=== PATIENT | female | born 1945 | race Caucasian/White ===

== ENCOUNTER → 2017-06-13 09:12 | Outpatient (CLI) | payer MEDICARE, SELFPAY ==
[2017-05-02 00:22] VITALS: BP 156/84; BMI 34.5
[2017-06-13 10:07] LABS: AST(SGOT) 46 U/L (15-37); Alanine Aminotransfer ALT/SGPT 40 U/L (13-56); Alkaline Phosphatase 62 U/L (45-117); Anion Gap 10 (5-15); BUN 26 mg/dL (7-18); BUN/Creat Ratio 18.1 RATIO (10-20); Calcium,Total 9.2 mg/dL (8.5-10.1); Chloride 108 mmol/L (98-107); Cholesterol 184 mg/dL (200); Creatinine, Serum 1.44 mg/dL (0.55-1.02); EST Glomerular Filtration Rate 38 mL/min (>60); Est Glom Filt Rate - Afr Amer 46 mL/min (>60); Globulin 3.9 g/dL (2.2-4.2); Glucose 109 mg/dL (74-106); High Density Lipoprotein 44 mg/dL; Potassium 3.9 mmol/L (3.5-5.1); Protein, Total 7.9 g/dL (6.4-8.2); Sodium Level 141 mmol/L (136-145); Triglycerides 164 mg/dL; Very Low Density Lipoprotein 33 mg/dL (5-40)
== END ==
PROVIDERS: PCP Internal Medicine Geriatric Medicine
DX: E78.5 Hyperlipidemia, unspecified (principal)
CPT/HCPCS: 36415; 80053; 80061

== ENCOUNTER 2017-07-02 12:19 | Emergency (ER) | payer MEDICARE, SELFPAY ==
[2017-07-02 12:20] VITALS: BP 172/79; PULSE 72; RESP 16; TEMP 37.2; O2SAT 97; BMI 34.7
--- NOTE | 2017-07-02 13:05 | RAD_ITS ---
STUDY: X-RAY CHEST REASON FOR EXAM: Female, 72 years old. Cough and flulike symptoms for several days TECHNIQUE: 2 views of the chest were obtained COMPARISON: None. FINDINGS: Small right-sided pleural effusion with right lower lobe developing which limits. Bilateral pulmonary vascular congestion. Surgical clips overlying the mediastinum. Cardiac size is slightly prominent. RAD/Chest PA and Lateral IMPRESSION: Small right-sided pleural effusion suspected with bilateral pulmonary vascular congestion. Subtle developing infiltrates in the right lower lobe are suspected. Electronically Signed: Link Arce, at 14:09 EST Tel , Service support ,
--- NOTE | 2017-07-02 13:09 | ED.DCSUM_ITS ---
- ER Visit Summary Date of Service: 07/02/17 Chief Complaint: Cough and congestion History of Present Illness: The patient is a 72 F with history of diabetes who presents with 2 days of cough, congestion and cold-like symptoms. Patient states she has been having a productive cough, sinus congestion, headache, achiness in her legs, vomiting, and ear congestion that started 2 days ago. She called her doctor yesterday who prescribed her amoxicillin. She was unable to tolerate it due to vomiting after taking it. She did get a flu shot. She thought she had a fever at home due to feeling warm. Physical Examination: Vital signs: afebrile, hemodynamically stable, no hypoxia on room air General: well nourished, well developed, in no distress Skin: warm, dry, no rash, no pallor HEENT: normocephalic and atraumatic; PERRL, EOMI, moist mucous membranes, nasal voice with obvious sinus congestion Cardiovascular: regular rate and rhythm without murmurs, no peripheral edema, 2 + pulses all distal extremities Respiratory: No increased work of breathing, lungs are clear to auscultation bilaterally, no rales, rhonchi or wheezing Abdominal: Abdomen is soft, nontender with normoactive bowel sounds, no guarding or rebound, no masses MSK: Moves all extremities, no deformities, normal strength Neuro: Awake and alert, oriented ?4. No facial droop, sensation and motor function intact and symmetric Test Results: Flu negative Emergency Department Course and Treatment: Patient was given Zofran for her nausea and had improvement. Flu was checked given her complaints and less than hour onset. It was negative. Chest x-ray showed a right lower lobe infiltrate. Patient will discontinue the amoxicillin and was prescribed azithromycin. She is to follow-up with her doctor early next week for reevaluation. She agreed with this plan was discharged home. He will continue to use [id number] medications as needed for symptomatic relief. Treatment Plan: [] Disposition: [] Impression: viral syndrome with secondary PNA This note was generated with [employer] dictation software. It may contain incorrect words, spelling, and punctuation that were not noted in review of the chart prior to signing ED Disposition - Plan for ED Patient: Disposition: Home or Assisted Living Chief Complaint: General Illness Instructions: ED Pneumonia Adult Prescriptions: Ondansetron [Zofran Odt] 4 mg PO Q8H PRN PRN #10 tab PRN Reason: Nausea Azithromycin [Zithromax Z-Davey] 250 mg PO UD #1 box Referrals: Shania Majano [Primary Care Provider] - 3-5 Days Additional Instructions: Your symptoms you are having today are most consistent with a viral syndrome. However your chest x-ray showed findings concerning for pneumonia. Please take your antibiotic daily as prescribed. You may use the Zofran to help you with nausea. Please follow-up with your doctor within 3-5 days for another evaluation and to make sure that you are improving. May continue to use over- the-counter medications as needed for symptom relief, such as Tylenol for headaches and body aches. Please return to the emergency department immediately if you have any worsening of your condition or any new, concerning symptoms.
[2017-07-02] MEDS: Ondansetron ODT 4 MG Tablet PO (13:12)
--- NOTE | 2017-07-02 14:52 | DCINST.ED_ITS ---
ED Disposition - Plan for ED Patient: Chief Complaint: General Illness Instructions: ED Pneumonia Adult Prescriptions: Ondansetron [Zofran Odt] 4 mg PO Q8H PRN PRN #10 tab PRN Reason: Nausea Azithromycin [Zithromax Z-Davey] 250 mg PO UD #1 box Referrals: Shania Majano [Primary Care Provider] - 3-5 Days Additional Instructions: Your symptoms you are having today are most consistent with a viral syndrome. However your chest x-ray showed findings concerning for pneumonia. Please take your antibiotic daily as prescribed. You may use the Zofran to help you with nausea. Please follow-up with your doctor within 3-5 days for another evaluation and to make sure that you are improving. May continue to use over- the-counter medications as needed for symptom relief, such as Tylenol for headaches and body aches. Please return to the emergency department immediately if you have any worsening of your condition or any new, concerning symptoms.
[2017-07-02 15:03] VITALS: BP 132/74; PULSE 71; RESP 16; O2SAT 98
== END 2017-07-02 15:04 | disposition home or self-care (01) ==
PROVIDERS: Emergency Provider Emergency Medicine; PCP Internal Medicine Geriatric Medicine
DX: J18.9 Pneumonia, unspecified organism (principal); B34.9 Viral infection, unspecified; Z79.2 Long term (current) use of antibiotics; Z79.82 Long term (current) use of aspirin; Z79.899 Other long term (current) drug therapy
CPT/HCPCS: 71046; 87804; 99283

== ENCOUNTER → 2017-07-11 10:34 | Outpatient (CLI) | payer MEDICARE, SELFPAY ==
--- NOTE | 2017-07-11 10:38 | US_ITS ---
STUDY: ABDOMINAL ULTRASOUND - RIGHT UPPER QUADRANT REASON FOR VISIT: Female, 72 years old. Nausea and vomiting TECHNIQUE: Ultrasound evaluation of the right upper quadrant was performed with real-time and static veras-scale imaging. TECHNICAL QUALITY: Adequate. COMPARISON: None. FINDINGS: Liver: The liver measures 15.5 cm. There is increased echogenicity consistent with fatty infiltration. There is 1.6 x 1.3 cm hyperechoic focus of the right hepatic lobe consistent with hemangioma. The bile ducts are within normal limits. There is hepatic color flow. The direction of portal flow is hepatopetal. Gallbladder: Normal distended gallbladder. The gallbladder wall measures 4 mm. There is a negative sonographic Woodall's sign. There is no pericholecystic fluid. Several small gallstones are present. Common Bile Duct (C.B.D.): The common bile duct measures 4 mm. Pancreas: Normal size of the head, body and tail of the pancreas. There is normal echogenicity of the pancreas. There is no demonstrated pancreatic mass or cyst. Right Kidney: Normal size of the right kidney. The right kidney measures 10.9 x 4.5 x 4.3 cm. Normal renal cortex. The right cortex measures 1.2 cm. There is a 1.8 x 2.0 cm cyst of the mid to inferior pole of the right kidney. There is no right hydronephrosis. US/Abdomen Limited IMPRESSION: 1. 1.6 x 1.3 cm hyperechoic focus of the right hepatic lobe consistent with hemangioma. CT of the abdomen with and without contrast would be helpful for further evaluation of this finding. 2. Hepatic steatosis. 3. Cholelithiasis. There is mild diffuse gallbladder wall thickening measuring up to 4 mm. 4. There is a 1.8 x 2.0 cm cyst of the mid to inferior pole of the right kidney. Electronically Signed: Melchor Mcclendon MD at 0:03 EDT , Service support ,
== END ==
PROVIDERS: Family Provider Internal Medicine Geriatric Medicine; PCP Internal Medicine Geriatric Medicine
DX: R11.2 Nausea with vomiting, unspecified (principal)
CPT/HCPCS: 76705

== ENCOUNTER → 2017-09-02 13:52 | Outpatient (CLI) | payer MEDICARE, SELFPAY ==
[2017-09-02 15:55] LABS: Anion Gap 9 (5-15); BUN 24 mg/dL (7-18); Calcium,Total 9.8 mg/dL (8.5-10.1); Chloride 105 mmol/L (98-107); Creatinine, Serum 1.33 mg/dL (0.55-1.02); EST Glomerular Filtration Rate 41 mL/min (>60); Est Glom Filt Rate - Afr Amer 50 mL/min (>60); Glucose 87 mg/dL (74-106); Sodium Level 141 mmol/L (136-145)
== END ==
PROVIDERS: Family Provider Internal Medicine Geriatric Medicine; PCP Internal Medicine Geriatric Medicine; Visit Provider Internal Medicine Geriatric Medicine
DX: I12.9 Hypertensive chronic kidney disease with stage 1 through stage 4 chronic kidney disease, or unspecified chronic kidney disease (principal); N18.3 Chronic kidney disease, stage 3 (moderate); R63.5 Abnormal weight gain
CPT/HCPCS: 36415; 80048

== ENCOUNTER → 2018-02-25 10:30 | Outpatient (CLI) | payer MEDICARE, SELFPAY ==
[2018-02-25 12:13] LABS: Anion Gap 9 (5-15); BUN 20 mg/dL (7-18); BUN/Creat Ratio 13.2 RATIO (10-20); Calcium,Total 8.9 mg/dL (8.5-10.1); Chloride 105 mmol/L (98-107); Creatinine, Serum 1.52 mg/dL (0.55-1.02); EST Glomerular Filtration Rate 36 mL/min (>60); Est Glom Filt Rate - Afr Amer 43 mL/min (>60); Glucose 87 mg/dL (74-106); Potassium 3.5 mmol/L (3.5-5.1); Sodium Level 139 mmol/L (136-145)
== END ==
PROVIDERS: Family Provider Internal Medicine Geriatric Medicine; PCP Internal Medicine Geriatric Medicine; Referring Provider Internal Medicine Geriatric Medicine; Visit Provider Internal Medicine Geriatric Medicine
DX: I12.9 Hypertensive chronic kidney disease with stage 1 through stage 4 chronic kidney disease, or unspecified chronic kidney disease (principal); N18.3 Chronic kidney disease, stage 3 (moderate)
CPT/HCPCS: 36415; 80048

== ENCOUNTER → 2018-05-26 15:35 | Outpatient (CLI) | payer MEDICARE, SELFPAY ==
[2018-05-26 16:26] LABS: Hematocrit 33.5 % (37-47); Hemoglobin 10.8 g/dl (12.0-15.0); Mean Corp Hgb Conc 32.2 g/gl (32-36); Mean Corpuscular Hgb 29.8 pg (27.0-32.0); Mean Corpuscular Volume 92.3 fL (81-99); Mean Platelet Vol. 10.2 fl (6.2-12.0); Platelet Count 313 K/mm3 (150-450); RBC Distribution Width CV 14.2 % (11.6-14.6); RBC Distribution Width SD 46.2 fl (35.1-43.9); Red Blood Count 3.63 M/mm3 (4.2-5.4); White Blood Count 8.1 K/mm3 (4.4-11.0)
[2018-05-26 16:31] LABS: Scan Indicated on CBC? Y/N NO
[2018-05-26 16:53] LABS: ALB/GLOB Ratio 0.8 RATIO (0.9-2.4); AST(SGOT) 29 U/L (15-37); Alanine Aminotransfer ALT/SGPT 26 U/L (13-56); Albumin, Serum 3.4 g/dL (3.2-5.0); Alkaline Phosphatase 64 U/L (45-117); Anion Gap 12 (5-15); BUN 23 mg/dL (7-18); BUN/Creat Ratio 13.6 RATIO (10-20); Calcium,Total 8.7 mg/dL (8.5-10.1); Chloride 109 mmol/L (98-107); Creatinine, Serum 1.69 mg/dL (0.55-1.02); EST Glomerular Filtration Rate 31 mL/min (>60); Est Glom Filt Rate - Afr Amer 38 mL/min (>60); Globulin 4.2 g/dL (2.2-4.2); Glucose 95 mg/dL (74-106); Potassium 3.8 mmol/L (3.5-5.1); Protein, Total 7.6 g/dL (6.4-8.2); Sodium Level 141 mmol/L (136-145)
== END ==
PROVIDERS: Family Provider Internal Medicine Geriatric Medicine; PCP Internal Medicine Geriatric Medicine; Referring Provider Internal Medicine Geriatric Medicine; Visit Provider Internal Medicine Geriatric Medicine
DX: I10 Essential (primary) hypertension (principal); M10.9 Gout, unspecified
CPT/HCPCS: 36415; 80053; 85027

== ENCOUNTER 2018-05-27 18:18 | Emergency (ER) | payer MEDICARE, SELFPAY ==
[2018-05-27 18:19] VITALS: BP 155/111; PULSE 75; RESP 29; O2SAT 99
[2018-05-27 18:20] VITALS: BP 115/111; PULSE 78; RESP 26; TEMP 37.2; O2SAT 99; BMI 36.5
--- NOTE | 2018-05-27 18:33 | EKG12_ITS ---
Test Reason : GI BLEED Blood Pressure : / mmHG Vent. Rate : 069 BPM Atrial Rate : 069 BPM P-R Int : 162 ms QRS Dur : 076 ms QT Int : 412 ms P-R-T Axes : 047 002 055 degrees QTc Int : 441 ms Normal sinus rhythm Normal ECG Confirmed by SOHAIL ELIZONDO, UMU ([id number]), movie editor BUBBA WELSH ([id number]) on 05/30/2018 2:10:24 PM Referred By: Shania Barney Confirmed By:UMU SAUCEDA MD
[2018-05-27 18:43] LABS: Absolute Lymphocyte Count 1.98 X10^3/ul (0.83-4.51); Absolute Neutrophil Count 4.4 X10^3/uL (2.0-7.7); Basophil# 0.05 X10^3/uL; Basophil% 0.7 % (0-1); Eosinophil# 0.61 X10^3/uL; Eosinophils% 8.1 % (0-5); Hemoglobin 10.3 g/dl (12.0-15.0); Lymphocyte # 1.98 X10^3/ul (4.0); Lymphocyte % 26.2 % (19-41); Mean Corp Hgb Conc 32.2 g/gl (32-36); Mean Corpuscular Hgb 29.2 pg (27.0-32.0); Mean Corpuscular Volume 90.7 fL (81-99); Mean Platelet Vol. 9.7 fl (6.2-12.0); Monocyte# 0.49 X10^3/uL; Monocyte% 6.5 % (0-10); Neutrophil # 4.38 X10^3/uL (2.7-7.7); POSITIVE COUNT NO; POSITIVE DIFFERENTIAL NO; POSITIVE MORPHOLOGY NO; Platelet Count 304 K/mm3 (150-450); RBC Distribution Width CV 14.6 % (11.6-14.6); RBC Distribution Width SD 47.6 fl (35.1-43.9); Red Blood Count 3.53 M/mm3 (4.2-5.4); White Blood Count 7.6 K/mm3 (4.4-11.0)
[2018-05-27 18:46] LABS: Prothrombin Time (Protime)PT. 13.6 SECONDS (11.7-14.9)
--- NOTE | 2018-05-27 18:46 | CT_ITS ---
STUDY: CT ABDOMEN AND PELVIS WITHOUT CONTRAST REASON FOR EXAM: Female, 72 years old. Rectal bleeding since , dizziness, shortness of breath RADIATION DOSAGE (If Supplied By Facility): CTDIvol = ( 18.92 ) mGy, DLP = ( 935.66 ) mGycm TECHNIQUE: Transaxial images were obtained from the dome of the diaphragm to the symphysis pubis without oral contrast, and without intravenous contrast. Sagittal and coronal images were reconstructed. Individualized dose optimization techniques were used for this CT. COMPARISON: None. FINDINGS: There are chronic interstitial fibrotic changes of the lung bases. The visualized portions of the heart are within normal limits. Normal liver. There are 2 gallstones. Normal spleen. Normal pancreas. Normal bilateral adrenal glands. Normal right kidney. Normal left kidney. There is a small hiatal hernia. Normal small intestine. There are multiple colonic diverticula consistent with diverticulosis. No pericolonic stranding identified. Prominent wall thickness of the sigmoid colon likely relates muscular hyperplasia given lack of adjacent stranding/inflammation. There is non-visualization of the appendix. There is diffuse atherosclerotic calcification of the abdominal aorta, without a demonstrated aneurysm. Normal inferior vena cava. Normal retroperitoneum. There is mild diffuse induration of the mesenteric root with small lymph nodes but no dominant rom mass. Normal urinary bladder. There is absence of the uterus consistent with a prior hysterectomy. Normal abdominal wall. There are diffuse degenerative changes of the visualized lumbar spine. CT/Abdomen/Pelvis without Cont IMPRESSION: 1. Diverticulosis without evidence of diverticulitis. No definite colon wall thickening. 2. Lavonne mesentery with reactive-appearing lymph nodes. No dominant rom mass. Broad differential diagnosis without distinguishing features on current exam. Most typically represent sequela of prior/old event of inflammation (including enteritis, diverticulitis) or mesenteritis. Likely a chronic finding but no comparison studies are available. Electronically Signed: Julio Campo MD at 20:06 EST , Service support ,
--- NOTE | 2018-05-27 18:48 | ED.DCSUM_ITS ---
- ER Visit Summary Date of Service: 05/27/18 Chief Complaint: [] Rectal bleeding intermittently for weeks History of Present Illness: The patient is a 72 F [] she has noted intermittent blood per rectum for weeks she really cannot quantify or describe it, she has been evaluated for this in the past by her physicians colonoscopy recommended she is refused, she indicates over the last few days she has had more blood per rectum but she reports for the last 24 hours she is actually had less blood per rectum today no vomiting intermittent crampy pain to the left lower quadrant normal UA output takes an aspirin a day no blood thinners Physical Examination: [] 115/100 General, no distress resting comfortably HEENT is generally unremarkable The neck is supple no adenopathy Cardiovascular, regular rate and rhythm Lungs, clear bilateral Abdomen, soft nontender the rectal exam shows hemorrhoids brown stool in the rectal vault no pain no bleeding no blood Extremities, no clubbing cyanosis or edema Neurologic, awake alert answering questions appropriately moving all 4 extremities Test Results: [] Emergency Department Course and Treatment: [] Screening labs CT flank given the above She is screening labs are unremarkable except her hemoglobin is about 9 her prior hemoglobins were 14, hemoglobin from yesterday was also 9, CT scan shows nothing acute see those reports discussed all with both her and her daughter discussed inpatient versus outpatient management she would prefer to be worked up as an outpatient she will follow with her primary care providers and she understands she needs referral to GI for likely colonoscopy she will take [id number] multivitamin with iron and then return for any significant GI bleeding of any kind and avoid nonsteroidals and aspirin and again she understands clear the need for close outpatient follow-up and I did explain to her the concept of severe life-threatening condition such as cancer that could be causing her bleeding and she her daughter voiced understanding Treatment Plan: [] Disposition: [] Home stable Impression: [] Intermittent rectal bleeding with anemia This note was generated with [employer] dictation software. It may contain incorrect words, spelling, and punctuation that were not noted in review of the chart prior to signing ED Disposition - Plan for ED Patient: Chief Complaint: GI Bleed Referrals: Shania Majano [Primary Care Provider] -
[2018-05-27] MEDS: 0.9% Normal Saline 1,000 ML 125 ML IV (19:01)
[2018-05-27] MEDS: Ondansetron 4 MG/2 ML Vial IV (19:01)
[2018-05-27 19:10] LABS: AST(SGOT) 38 U/L (15-37); Alanine Aminotransfer ALT/SGPT 24 U/L (13-56); Albumin, Serum 3.4 g/dL (3.2-5.0); Alkaline Phosphatase 67 U/L (45-117); Anion Gap 10 (5-15); BUN 21 mg/dL (7-18); BUN/Creat Ratio 12.5 RATIO (10-20); Bilirubin, Direct 0.06 mg/dL (0.00-0.30); Calcium,Total 8.3 mg/dL (8.5-10.1); Chloride 109 mmol/L (98-107); Creatinine, Serum 1.68 mg/dL (0.55-1.02); EST Glomerular Filtration Rate 32 mL/min (>60); Est Glom Filt Rate - Afr Amer 38 mL/min (>60); Globulin 4.4 g/dL (2.2-4.2); Glucose 101 mg/dL (74-106); Lipase 368 U/L (73-393); Potassium 3.8 mmol/L (3.5-5.1); Protein, Total 7.8 g/dL (6.4-8.2); Sodium Level 141 mmol/L (136-145)
[2018-05-27 20:19] LABS: Bacteria 0 SEEN /hpf (None Seen); Mucous, Urine 0 SEEN /hpf (<or=2+)
--- NOTE | 2018-05-27 20:19 | ED.DEP ---
ED Disposition - Plan for ED Patient: Chief Complaint: GI Bleed Instructions: ED Hematochezia Stable Referrals: Shania Majano [Primary Care Provider] - Additional Instructions: You must follow-up with your outpatient providers for further management and referral to GI physicians and colonoscopy, please take multivitamin with iron until followed up avoid all aspirin or Motrin type products
[2018-05-27 20:32] LABS: Color, Urine Yellow (Yellow); Glucose, Dipstick Normal (Normal); Ketone-Dipstick Negative (Negative); Leukocyte Esterase-Dipstick 100 /ul (Negative); Nitrite-Dipstick Negative (Negative); Occult Blood-Urine 250 /ul (Negative); Protein-Dipstick 100 mg/dl (Negative); Urine Bilirubin Dipstick Negative (Negative); Urine Clarity Cloudy (Clear); Urine Urobilinogen Normal (Normal)
[2018-05-27 20:38] LABS: Hyaline Cast 0-5 SEEN /lpf (0-5); Red Blood Cells-Urine 25-50 SEEN /hpf (0-5); White Blood Cells 10-25 SEEN /hpf (0-5)
[2018-05-27 20:41] LABS: Squamous Epithelial Cells - UA 0-5 SEEN /hpf (5-10)
[2018-05-27 20:42] LABS: Transitional Epithelial - Ur 0-5 SEEN /hpf (0-5)
[2018-05-27 20:48] VITALS: BP 136/71; PULSE 67
--- NOTE | 2018-05-27 20:50 | ED.DEP ---
ED Disposition - Plan for ED Patient: Chief Complaint: GI Bleed Instructions: ED Hematochezia Stable Prescriptions: Ondansetron [Zofran Odt] 4 mg PO Q8H PRN PRN #10 tab PRN Reason: Nausea Referrals: Shania Majano [Primary Care Provider] - Additional Instructions: You must follow-up with your outpatient providers for further management and referral to GI physicians and colonoscopy, please take multivitamin with iron until followed up avoid all aspirin or Motrin type products
[2018-05-27 20:55] VITALS: BP 136/71; PULSE 62; RESP 18; O2SAT 98
== END 2018-05-27 20:55 | disposition home or self-care (01) ==
PROVIDERS: Emergency Provider Emergency Medicine; Family Provider Internal Medicine Geriatric Medicine; PCP Internal Medicine Geriatric Medicine
DX: K62.5 Hemorrhage of anus and rectum (principal); D64.9 Anemia, unspecified; Z79.82 Long term (current) use of aspirin; Z79.899 Other long term (current) drug therapy
CPT/HCPCS: 74176; 80048; 80076; 81001; 83690; 84484; 85025; 85610; 93005; 96361; 96374; 99285; A4216; J2405

== ENCOUNTER → 2018-06-02 14:25 | Outpatient (CLI) | payer MEDICARE, SELFPAY ==
[2018-05-27 18:20] VITALS: BMI 36.5
[2018-06-02 15:48] LABS: Hematocrit 32.4 % (37-47); Hemoglobin 10.3 g/dl (12.0-15.0); Mean Corp Hgb Conc 31.8 g/gl (32-36); Mean Corpuscular Volume 94.5 fL (81-99); Mean Platelet Vol. 9.8 fl (6.2-12.0); Platelet Count 328 K/mm3 (150-450); RBC Distribution Width CV 14.9 % (11.6-14.6); RBC Distribution Width SD 47.9 fl (35.1-43.9); Red Blood Count 3.43 M/mm3 (4.2-5.4)
[2018-06-02 15:50] LABS: Scan Indicated on CBC? Y/N NO
== END ==
PROVIDERS: Family Provider Internal Medicine Geriatric Medicine; PCP Internal Medicine Geriatric Medicine; Referring Provider Internal Medicine Geriatric Medicine; Visit Provider Internal Medicine Geriatric Medicine
DX: D64.9 Anemia, unspecified (principal)
CPT/HCPCS: 36415; 85027

== ENCOUNTER → 2018-06-19 14:41 | Outpatient (CLI) | payer MEDICARE, SELFPAY ==
[2018-05-27 18:20] VITALS: BMI 36.5
[2018-06-19 15:04] LABS: Anion Gap 7 (5-15); BUN 22 mg/dL (7-18); BUN/Creat Ratio 12.9 RATIO (10-20); Calcium,Total 8.7 mg/dL (8.5-10.1); Chloride 110 mmol/L (98-107); Creatinine, Serum 1.71 mg/dL (0.55-1.02); EST Glomerular Filtration Rate 31 mL/min (>60); Est Glom Filt Rate - Afr Amer 37 mL/min (>60); Glucose 83 mg/dL (74-106); Hematocrit 31.4 % (37-47); Hemoglobin 9.9 g/dl (12.0-15.0); Mean Corp Hgb Conc 31.5 g/gl (32-36); Mean Corpuscular Hgb 29.6 pg (27.0-32.0); Mean Corpuscular Volume 93.7 fL (81-99); Platelet Count 323 K/mm3 (150-450); Potassium 3.7 mmol/L (3.5-5.1); RBC Distribution Width CV 15.3 % (11.6-14.6); RBC Distribution Width SD 52.7 fl (35.1-43.9); Red Blood Count 3.35 M/mm3 (4.2-5.4); Scan Indicated on CBC? Y/N NO; Sodium Level 141 mmol/L (136-145); White Blood Count 6.9 K/mm3 (4.4-11.0)
== END ==
PROVIDERS: Family Provider Internal Medicine Geriatric Medicine; PCP Internal Medicine Geriatric Medicine; Referring Provider Internal Medicine Geriatric Medicine; Visit Provider Internal Medicine Geriatric Medicine
DX: D64.9 Anemia, unspecified (principal); I10 Essential (primary) hypertension
CPT/HCPCS: 80048; 85027

== ENCOUNTER → 2018-07-01 10:54 | Outpatient (CLI) | payer MEDICARE, SELFPAY ==
[2018-07-01 11:42] LABS: Hematocrit 35.2 % (37-47); Hemoglobin 10.7 g/dl (12.0-15.0); Mean Corp Hgb Conc 30.4 g/gl (32-36); Mean Corpuscular Hgb 28.8 pg (27.0-32.0); Mean Corpuscular Volume 94.6 fL (81-99); Mean Platelet Vol. 10.6 fl (6.2-12.0); Platelet Count 280 K/mm3 (150-450); RBC Distribution Width CV 15.3 % (11.6-14.6); RBC Distribution Width SD 52.7 fl (35.1-43.9); Red Blood Count 3.72 M/mm3 (4.2-5.4); White Blood Count 7.3 K/mm3 (4.4-11.0)
[2018-07-01 11:45] LABS: Scan Indicated on CBC? Y/N NO
[2018-07-01 12:01] LABS: Anion Gap 13 (5-15); BUN 29 mg/dL (7-18); BUN/Creat Ratio 18.5 RATIO (10-20); Calcium,Total 9.2 mg/dL (8.5-10.1); Chloride 110 mmol/L (98-107); Creatinine, Serum 1.57 mg/dL (0.55-1.02); EST Glomerular Filtration Rate 34 mL/min (>60); Est Glom Filt Rate - Afr Amer 41 mL/min (>60); Glucose 100 mg/dL (74-106); Potassium 3.6 mmol/L (3.5-5.1); Sodium Level 142 mmol/L (136-145)
== END ==
PROVIDERS: Family Provider Internal Medicine Geriatric Medicine; PCP Internal Medicine Geriatric Medicine; Referring Provider Internal Medicine Geriatric Medicine; Visit Provider Internal Medicine Geriatric Medicine
DX: N18.3 Chronic kidney disease, stage 3 (moderate) (principal); D64.9 Anemia, unspecified
CPT/HCPCS: 36415; 80048; 85027

== ENCOUNTER → 2019-05-26 07:49 | Outpatient (CLI) | payer MEDICARE, OTHER, SELFPAY ==
[2019-05-26 08:41] LABS: ALB/GLOB Ratio 0.9 RATIO (0.9-2.4); AST(SGOT) 34 U/L (15-37); Alanine Aminotransfer ALT/SGPT 26 U/L (13-56); Alkaline Phosphatase 70 U/L (45-117); Anion Gap 7 (5-15); BUN 25 mg/dL (7-18); BUN/Creat Ratio 10.8 RATIO (10-20); Calcium,Total 9.9 mg/dL (8.5-10.1); Chloride 106 mmol/L (98-107); Cholesterol 194 mg/dL (200); Creatinine, Serum 2.31 mg/dL (0.55-1.02); EST Glomerular Filtration Rate 22 mL/min (>60); Est Glom Filt Rate - Afr Amer 26 mL/min (>60); Globulin 4.7 g/dL (2.2-4.2); Glucose 102 mg/dL (74-106); High Density Lipoprotein 50 mg/dL; Potassium 3.9 mmol/L (3.5-5.1); Protein, Total 8.7 g/dL (6.4-8.2); Sodium Level 139 mmol/L (136-145); Triglycerides 192 mg/dL; Very Low Density Lipoprotein 38 mg/dL (5-40)
== END ==
PROVIDERS: PCP Internal Medicine Geriatric Medicine; Referring Provider Internal Medicine Geriatric Medicine; Visit Provider Internal Medicine Geriatric Medicine
DX: E78.5 Hyperlipidemia, unspecified (principal); I12.9 Hypertensive chronic kidney disease with stage 1 through stage 4 chronic kidney disease, or unspecified chronic kidney disease; N18.3 Chronic kidney disease, stage 3 (moderate)
CPT/HCPCS: 36415; 80053; 80061

== ENCOUNTER → 2019-06-07 | Outpatient (CLI) | payer MEDICARE, SELFPAY ==
--- NOTE | 2019-06-07 13:58 | BD_ITS ---
STUDY: DUAL ENERGY X-RAY ABSORPTIOMETRY / DXA REASON FOR EXAM: Female, 73 years old. [employer] -- HX OF HRT -- TAKES CALCIUM AND MULTIVITAMIN -- DOES LITTLE EXERCISE -- VALENCIA OF 0.5 INCH TECHNIQUE: Bone Mineral Density (BMD) measurements of lumbar spine and bilateral hips were obtained. COMPARISON: None. FINDINGS: Lumbar Spine (L1-L4): g/cm2 (1.452) / T-score (2.3) / Z-score (4.0) Findings are suggestive of normal bone density with a low fracture risk. Left Femur Total: g/cm2 (1.089) / T-score (0.6) / Z-score (2.4) Left Femoral Neck: g/cm2 (1.013) / T-score (-0.2) / Z-score (1.8) Right Femur Total: g/cm2 (1.084) / T-score (0.6) / Z-score (2.4) Right Femoral Neck: g/cm2 (1.039) / T-score (0.0) / Z-score (2.0) BD/Dexa Bone Density Study IMPRESSION: The patient is considered normal as outlined below according to World Peter Organization (WHO) criteria with a low fracture risk. Reference Information: The T-score is the number of standard deviations above or below the standard which is normal for young adults at their peak bone mineral density. The World Health Organization (WHO) interprets the T-scores as follows: Above -1 Normal bone density Between -1 and -2.5 Osteopenia Equal to / or below -2.5 Osteoporosis As a practical clinical guideline, osteopenia may be graded as follows: Mild -1 through -1.5 Moderate -1.6 through -2.0 Severe -2.1 through -2.4 The Z-score is the number of standard deviations above or below age-matched controls. A Z-score of less than -1.5 would be considered abnormal. References: 1. NIH Osteoporosis and Related Bone Diseases http://www.osteo.org 2. International Society for Clinical Densitometry http://www.iscd.org 3. National Osteoporosis Foundation http://www.nof.org Electronically Signed: Cedric Navas, at 15:50 EST , Service support ,
== END | disposition home or self-care (01) ==
PROVIDERS: PCP Internal Medicine Geriatric Medicine; Referring Provider Internal Medicine Geriatric Medicine
DX: M81.0 Age-related osteoporosis without current pathological fracture (principal)
CPT/HCPCS: 77080

== ENCOUNTER → 2019-09-11 | Outpatient (CLI) | payer MEDICARE, MEDICAID, SELFPAY ==
[2019-09-11 12:00] LABS: Mucous, Urine 0 SEEN /hpf (<or=2+)
[2019-09-11 12:46] LABS: Hematocrit 35.6 % (37-47); Hemoglobin 11.7 g/dL (12.0-15.0); Mean Corp Hgb Conc 32.9 g/dL (32-36); Mean Corpuscular Hgb 29.5 pg (27.0-32.0); Mean Corpuscular Volume 89.9 fL (81-99); Mean Platelet Vol. 10.2 fl (6.2-12.0); Platelet Count 317 K/mm3 (150-450); RBC Distribution Width CV 14.7 % (11.6-14.6); RBC Distribution Width SD 48.2 fl (35.1-43.9); Red Blood Count 3.96 M/mm3 (4.2-5.4); White Blood Count 9.7 K/mm3 (4.4-11.0)
[2019-09-11 12:49] LABS: Color, Urine Yellow (Yellow); Glucose, Dipstick Normal (Normal); Ketone-Dipstick Negative (Negative); Leukocyte Esterase-Dipstick 500 /ul (Negative); Nitrite-Dipstick Negative (Negative); Occult Blood-Urine 250 /ul (Negative); Protein-Dipstick 30 mg/dl (Negative); Urine Bilirubin Dipstick Negative (Negative); Urine Clarity Clear (Clear); Urine Urobilinogen Normal (Normal)
[2019-09-11 12:56] LABS: Bacteria RARE /hpf (None Seen); Red Blood Cells-Urine 5-10 SEEN /hpf (0-5); Squamous Epithelial Cells - UA 0-5 SEEN /hpf (5-10); White Blood Cells 5-10 SEEN /hpf (0-5)
[2019-09-11 13:15] LABS: PTHIN 41.7 pg/mL (18.4-80.1)
[2019-09-11 13:20] LABS: Vitamin D,25 Hydroxy 36.7 ng/mL
[2019-09-11 13:38] LABS: ALB/GLOB Ratio 0.9 RATIO (0.9-2.4); AST(SGOT) 40 U/L (15-37); Alanine Aminotransfer ALT/SGPT 22 U/L (13-56); Albumin, Serum 3.7 g/dL (3.2-5.0); Alkaline Phosphatase 69 U/L (45-117); Anion Gap 13 (5-15); BUN 24 mg/dL (7-18); BUN/Creat Ratio 12.6 RATIO (10-20); Calcium,Total 9.2 mg/dL (8.5-10.1); Chloride 103 mmol/L (98-107); Cholesterol 181 mg/dL (200); EST Glomerular Filtration Rate 27 mL/min (>60); Est Glom Filt Rate - Afr Amer 33 mL/min (>60); Globulin 4.3 g/dL (2.2-4.2); Glucose 107 mg/dL (74-106); High Density Lipoprotein 53 mg/dL; Potassium 3.6 mmol/L (3.5-5.1); Sodium Level 137 mmol/L (136-145); Thyroid Stim Hormone (TSH) 2.78 uIU/mL (0.358-3.74); Triglycerides 128 mg/dL; Very Low Density Lipoprotein 26 mg/dL (5-40)
== END | disposition home or self-care (01) ==
LOC: LAB 11:48
PROVIDERS: PCP Internal Medicine Geriatric Medicine; Referring Provider Internal Medicine Geriatric Medicine; Visit Provider Internal Medicine Geriatric Medicine
DX: E55.9 Vitamin D deficiency, unspecified (principal); D64.9 Anemia, unspecified; R39.15 Urgency of urination; R63.4 Abnormal weight loss; I12.9 Hypertensive chronic kidney disease with stage 1 through stage 4 chronic kidney disease, or unspecified chronic kidney disease; N18.3 Chronic kidney disease, stage 3 (moderate); I73.9 Peripheral vascular disease, unspecified; M10.9 Gout, unspecified; E78.5 Hyperlipidemia, unspecified
CPT/HCPCS: 36415; 80053; 80061; 81001; 82306; 83970; 84443; 84550; 85027; 87086; 87088

== ENCOUNTER → 2019-12-26 15:18 | Outpatient (CLI) | payer MEDICARE, MEDICAID, SELFPAY ==
[2019-12-26 15:00] VITALS: BMI 36.5
[2019-12-26 17:03] LABS: AST(SGOT) 33 U/L (15-37); Alanine Aminotransfer ALT/SGPT 26 U/L (13-56); Albumin, Serum 3.9 g/dL (3.2-5.0); Alkaline Phosphatase 65 U/L (45-117); Anion Gap 6 (5-15); BUN 13 mg/dL (7-18); BUN/Creat Ratio 7.5 RATIO (10-20); Calcium,Total 9.2 mg/dL (8.5-10.1); Chloride 110 mmol/L (98-107); Creatinine, Serum 1.74 mg/dL (0.55-1.02); EST Glomerular Filtration Rate 30 mL/min (>60); Est Glom Filt Rate - Afr Amer 37 mL/min (>60); Globulin 3.9 g/dL (2.2-4.2); Glucose 109 mg/dL (74-106); Potassium 3.7 mmol/L (3.5-5.1); Protein, Total 7.8 g/dL (6.4-8.2); Sodium Level 140 mmol/L (136-145)
== END ==
PROVIDERS: PCP Internal Medicine; Referring Provider Internal Medicine; Visit Provider Internal Medicine
DX: I10 Essential (primary) hypertension (principal)
CPT/HCPCS: 36415; 80053

== ENCOUNTER → 2020-05-06 10:35 | Outpatient (CLI) | payer MEDICARE, MEDICAID, SELFPAY ==
[2020-05-06 10:07] VITALS: BMI 28.8
[2020-05-06 12:35] LABS: Erythrocyte Sedimentation Rate 59 mm/hr (0-30); Rheumatoid Factor < 10.0 IU/mL (<15)
[2020-05-08 15:14] LABS: CCP IgG Antibodies 6 units (0-19)
== END ==
PROVIDERS: PCP Internal Medicine; Referring Provider Internal Medicine; Visit Provider Internal Medicine
DX: M19.90 Unspecified osteoarthritis, unspecified site (principal)
CPT/HCPCS: 36415; 85652; 86140; 86200; 86431

== ENCOUNTER → 2020-06-24 13:49 | Outpatient (CLI) | payer MEDICARE, MEDICAID, SELFPAY ==
[2020-06-24 15:39] LABS: ALB/GLOB Ratio 1.1 RATIO (0.9-2.4); AST(SGOT) 34 U/L (15-37); Alanine Aminotransfer ALT/SGPT 24 U/L (13-56); Albumin, Serum 3.8 g/dL (3.2-5.0); Alkaline Phosphatase 70 U/L (45-117); Anion Gap 10 (5-15); BUN 24 mg/dL (7-18); Calcium,Total 8.9 mg/dL (8.5-10.1); Chloride 112 mmol/L (98-107); Creatinine, Serum 1.71 mg/dL (0.55-1.02); EST Glomerular Filtration Rate 31 mL/min (>60); Est Glom Filt Rate - Afr Amer 37 mL/min (>60); Globulin 3.5 g/dL (2.2-4.2); Glucose 91 mg/dL (74-106); Potassium 4.3 mmol/L (3.5-5.1); Protein, Total 7.3 g/dL (6.4-8.2); Sodium Level 144 mmol/L (136-145)
== END ==
PROVIDERS: PCP Internal Medicine; Referring Provider Internal Medicine; Visit Provider Internal Medicine
DX: I10 Essential (primary) hypertension (principal)
CPT/HCPCS: 36415; 80053

== ENCOUNTER → 2020-07-01 11:29 | Outpatient (CLI) | payer MEDICARE, SELFPAY | PROVIDERS: PCP Internal Medicine; Visit Provider Internal Medicine Nephrology | DX: N18.4 Chronic kidney disease, stage 4 (severe) (principal); N39.0 Urinary tract infection, site not specified | CPT/HCPCS: 86335; 87086; 87088 ==

== ENCOUNTER → 2020-07-03 11:58 | Outpatient (CLI) | payer MEDICARE, MEDICAID, SELFPAY ==
[2020-05-06 10:07] VITALS: BMI 28.8
--- NOTE | 2020-07-03 12:03 | US_ITS ---
STUDY: RENAL ULTRASOUND - COMPLETE REASON FOR EXAM: Female, 75 years old. CKD STAGE 4 - SEVERE TECHNIQUE: Ultrasound evaluation of the kidneys was performed with real-time and static cabrera-scale imaging. COMPARISON: None. FINDINGS: RIGHT KIDNEY: with mild renal atrophy. The right kidney measures 8.6 cm x 5.2 cm x 4.1 cm. There is diffuse thinning of the renal cortex. The renal cortex measures 0.9 cm. There is a 2.6 cm x 2.2cm x 2.5 cm cyst. There are no right renal calculi. There is no right hydronephrosis. DISTAL RIGHT URETER: There is non-visualization of the distal right ureter. There is no demonstrated right ureterovesical junction calculus. There is no demonstrated right ureteral jet. LEFT KIDNEY: Normal location of the left kidney, which is normal in size. The left kidney measures 9.5 cm x 3.7 cm x 4.8 cm. There is a normal cortex of the left kidney. The renal cortex measures 1 cm. There is a 7 mm x 6 mm x 5 mm cyst. There are no left renal calculi. There is no left hydronephrosis. DISTAL LEFT URETER: There is non-visualization of the distal left ureter. There is no demonstrated left ureterovesical junction calculus. There is no demonstrated left ureteral jet. BLADDER: The distended urinary bladder has a volume of 99 ml. There is a normal wall thickness of the distended urinary bladder. There is no demonstrated mass within the urinary bladder. There are no demonstrated bladder calculi. Incidental finding is made of gallstones. US/Kidney and Bladder IMPRESSION: Atrophy of the right kidney. Bilateral renal cysts more prominent on the right side. Gallstones. Electronically Signed: Cedric Navas MD at 15:10 EST , Service support ,
== END ==
PROVIDERS: PCP Internal Medicine; Visit Provider Internal Medicine Nephrology
DX: N18.4 Chronic kidney disease, stage 4 (severe) (principal)
CPT/HCPCS: 76770

== ENCOUNTER → 2020-07-30 12:20 | Outpatient (CLI) | payer MEDICARE, MEDICAID, SELFPAY ==
[2020-05-06 10:07] VITALS: BMI 28.8
[2020-07-30 13:04] LABS: Albumin, Serum 3.9 g/dL (3.2-5.0); BUN 34 mg/dL (7-18); BUN/Creat Ratio 16.8 RATIO (10-20); Chloride 104 mmol/L (98-107); Creatinine, Serum 2.02 mg/dL (0.55-1.02); EST Glomerular Filtration Rate 25 mL/min (>60); Est Glom Filt Rate - Afr Amer 31 mL/min (>60); Glucose 83 mg/dL (74-106); Phosphorus 3.8 mg/dL (2.5-4.9); Potassium 4.4 mmol/L (3.5-5.1); Sodium Level 135 mmol/L (136-145)
[2020-07-30 13:40] LABS: 24 Hour Urine Protein 442.4 mg/24HR (<150 MG/24HR); 24HR. UA Prot. Total Volume 800 mL; Creat.Clear Total Volume 800 mL; Creatinine Clearance 18 ml/min (100-200); Creatinine Urine 66.2 mg/dL (NO RANGE EST.); EST Glomerular Filtration Rate 25 mL/min (>60); Est Glom Filt Rate - Afr Amer 31 mL/min (>60); Urine Protein (24 Hour) 55.3 mg/dL (<11.9)
[2020-08-04 13:20] LABS: Anti-Nuclear Antibody Test Negative (.)
== END ==
PROVIDERS: PCP Internal Medicine; Referring Provider Internal Medicine Nephrology; Visit Provider Internal Medicine Nephrology
DX: N18.4 Chronic kidney disease, stage 4 (severe) (principal)
CPT/HCPCS: 36415; 80069; 81050; 82575; 84156; 86038

== ENCOUNTER → 2020-12-26 16:03 | Outpatient (CLI) | payer MEDICARE, SELFPAY ==
[2020-12-26 17:04] LABS: Absolute Neutrophil Count 3.6 X10^3/uL (2.0-7.7); Basophil# 0.04 X10^3/uL; Basophil% 0.5 % (0-1); Eosinophils% 19.1 % (0-5); Hematocrit 39.6 % (37-47); Hemoglobin 12.2 g/dL (12.0-15.0); Lymphocyte % 26.8 % (19-41); Mean Corp Hgb Conc 30.8 g/dL (32-36); Mean Corpuscular Hgb 27.8 pg (27.0-32.0); Mean Corpuscular Volume 90.2 fL (81-99); Mean Platelet Vol. 10.1 fl (6.2-12.0); Monocyte# 0.56 X10^3/uL; Monocyte% 7.1 % (0-10); NRBC Flagged by Analyzer 0 % (0-5); Neutrophil # 3.61 X10^3/uL (2.7-7.7); Platelet Count 330 K/mm3 (150-450); RBC Distribution Width CV 13.7 % (11.6-14.6); RBC Distribution Width SD 45.6 fl (35.1-43.9); Red Blood Count 4.39 M/mm3 (4.2-5.4); White Blood Count 7.9 K/mm3 (4.4-11.0)
[2020-12-26 17:33] LABS: ALB/GLOB Ratio 0.9 RATIO (0.9-2.4); AST(SGOT) 22 U/L (15-37); Alanine Aminotransfer ALT/SGPT 28 U/L (13-56); Albumin, Serum 3.9 g/dL (3.2-5.0); Alkaline Phosphatase 65 U/L (45-117); Anion Gap 7 (5-15); BUN 25 mg/dL (7-18); BUN/Creat Ratio 15.7 RATIO (10-20); Calcium,Total 9.6 mg/dL (8.5-10.1); Chloride 106 mmol/L (98-107); Creatinine, Serum 1.59 mg/dL (0.55-1.02); EST Glomerular Filtration Rate 33 mL/min (>60); Est Glom Filt Rate - Afr Amer 40 mL/min (>60); Globulin 4.3 g/dL (2.2-4.2); Glucose 101 mg/dL (74-106); Potassium 4.1 mmol/L (3.5-5.1); Protein, Total 8.2 g/dL (6.4-8.2); Sodium Level 139 mmol/L (136-145)
== END ==
PROVIDERS: PCP Internal Medicine; Referring Provider Nurse Practitioner Family; Visit Provider Nurse Practitioner Family
DX: N18.4 Chronic kidney disease, stage 4 (severe) (principal); Z87.898 Personal history of other specified conditions
CPT/HCPCS: 36415; 80053; 85025

== ENCOUNTER → 2024-04-23 | Outpatient (CLI) | payer MEDICARE, SELFPAY ==
[2024-04-23 12:15] LABS: Absolute Lymphocyte Count 1.95 X10^3/uL (0.83-4.51); Absolute Neutrophil Count 5.5 X10^3/uL (2.0-7.7); Basophil# 0.08 X10^3/uL; Basophil% 0.9 % (0-1); Eosinophil# 0.84 X10^3/uL; Eosinophils% 9.3 % (0-5); Hematocrit 35.5 % (37-47); Lymphocyte # 1.95 X10^3/ul (0.83-4.51); Lymphocyte % 21.6 % (19-41); Mean Corpuscular Hgb 27.2 pg (27.0-32.0); Mean Corpuscular Volume 87.9 fL (81-99); Mean Platelet Vol. 10.2 fl (6.2-12.0); Monocyte# 0.66 X10^3/uL; Monocyte% 7.3 % (0-10); NRBC Flagged by Analyzer 0 % (0-5); Neutrophil # 5.47 X10^3/uL (2.7-7.7); Neutrophil % 60.5 % (47-70); Platelet Count 266 K/mm3 (150-450); RBC Distribution Width CV 14.6 % (11.6-14.6); Red Blood Count 4.04 M/mm3 (4.2-5.4)
[2024-04-23 12:19] LABS: ALB/GLOB Ratio 0.9 RATIO (0.9-2.4); AST(SGOT) 31 U/L (15-37); Alanine Aminotransfer ALT/SGPT 27 U/L (13-56); Albumin, Serum 3.8 g/dL (3.2-5.0); Alkaline Phosphatase 109 U/L (45-117); Anion Gap 7 (5-15); BUN 26 mg/dL (7-18); BUN/Creat Ratio 14.9 RATIO (10-20); Calcium,Total 9.2 mg/dL (8.5-10.1); Chloride 109 mmol/L (98-107); Cholesterol 152 mg/dL (200); Creatinine, Serum 1.75 mg/dL (0.55-1.02); EST Glomerular Filtration Rate 30 mL/min (>60); Est Glom Filt Rate - Afr Amer 36 mL/min (>60); Globulin 4.2 g/dL (2.2-4.2); Glucose 103 mg/dL (74-106); High Density Lipoprotein 60 mg/dL; Potassium 4.2 mmol/L (3.5-5.1); Sodium Level 137 mmol/L (136-145); Triglycerides 128 mg/dL; Very Low Density Lipoprotein 26 mg/dL (5-40)
[2024-04-23 12:37] LABS: Vitamin D,25 Hydroxy 22.4 ng/mL
== END | disposition home or self-care (01) ==
LOC: BIMLAB 08:35
PROVIDERS: PCP Internal Medicine; Referring Provider Internal Medicine; Visit Provider Internal Medicine
DX: I10 Essential (primary) hypertension (principal); E78.5 Hyperlipidemia, unspecified; M85.80 Other specified disorders of bone density and structure, unspecified site
CPT/HCPCS: 36415; 80053; 80061; 82306; 85025

== ENCOUNTER 2024-05-19 13:57 | Emergency (ER) | payer MEDICARE, SELFPAY ==
[2024-05-19] VITALS (9 sets, daily range): BP systolic 109–146; BP diastolic 40–114; PULSE 53–65; RESP 14–20; TEMP 37; O2SAT 93–98; BMI 30.5
[2024-05-19] MEDS: Famotidine 200 MG/20 ML MDV 20 MG in 0.9% Normal Saline (Pres. free 8 ML 300 MG IV (14:31)
[2024-05-19] MEDS: MethylPREDNISolone 125 MG/2 ML Vial IV (14:32)
[2024-05-19] MEDS: DiphenhydrAMINE 50 MG/ML Syringe 25 MG IV (14:34)
[2024-05-19] MEDS: Epi Pen (EQUIV) 0.3 MG Syringe IM (14:35)
--- NOTE | 2024-05-19 16:41 | EDS_ITS ---
HPI History of Present Illness Chief Complaint: Allergic Reaction Informant: patient Narrative Narrative: 78-year-old female arriving by EMS with the chief complaint of tongue and facial swelling as well as has hives. Patient states that just prior to arrival she began to feel itchy and have hives and to feel that her throat and tongue were swelling and now her lips. She has never had anything like this before states that she is not allergic to anything that she can recall. She states she is not on an ANSELMO inhibitor. Denies any new changes in soaps or lotions. The only thing she can think of that she changed recently was coffee brands. She notes some nausea. PFSH PFSH Medical History Fibromyalgia Basal cell carcinoma Dysphagia Chronic joint pain Onychomycosis Hearing loss Hyperlipemia Heart valve disorder Murmur Kidney disease Hypertension Hepatitis C Hearing problem Gout History of blood transfusion History of UTI Arthritis Seasonal allergies AA (alcohol abuse) Home Medications ?Medication ?Instructions ?Recorded ?Last Taken ?Type lidocaine 5 % topical patch 2 patch topical DAILY PRN pain #30 12/26/20 Unknown Rx ea pantoprazole 40 mg tablet,delayed 40 mg PO DAILY #90 tabs 03/18/21 Unknown Rx release trazodone 50 mg tablet 50 mg PO QHS #90 tabs 03/18/21 Unknown Rx atorvastatin 20 mg tablet 20 mg PO QHS #90 tabs 04/23/24 Unknown Rx donepezil 10 mg tablet 10 mg PO DAILY #90 tabs 04/23/24 Unknown Rx hydralazine 25 mg tablet 25 mg PO TID #90 tabs 04/23/24 Unknown Rx pregabalin 25 mg capsule 25 mg PO TID 1 month #90 caps 04/23/24 Unknown Rx Allergy/AdvReac Type Severity Reaction Status Date / Time No Known Allergies Allergy Verified 05/19/24 14:05 Family History Other Alcoholism Arthritis CVA (cerebral vascular accident) Cancer High cholesterol Hypertension Kidney disease Thyroid disorder blood transfusion Surgical History History of benign esophageal tumor Social History adopted: No household members: none number of children: 2 current occupational status: retired pets and animals: No sexually active: No Smoking Status: Never smoker alcohol intake: former year quit: 2010 details: beer, whiskey substance use type: does not use caffeine: Yes (3-5) Type: coffee frequency: 1-2 times per week do you feel safe at home: Yes ROS ROS ED Constitutional Constitutional ED: Denies chills or weight loss Eyes Eyes: Denies change in vision or diplopia ENT ENT ED: Reports other Details: Tongue lip swelling throat tight ; Denies ear pain, rhinorrhea or sore throat Cardiovascular Cardiovascular: Denies chest pain, orthopnea, palpitations or racing heartbeat Respiratory/Chest Respiratory/Chest: Denies cough, dyspnea or orthopnea Gastrointestinal Gastrointestinal: Denies abdominal pain, diarrhea, nausea or vomiting Genitourinary Genitourinary ED: Denies dysuria, hematuria or urinary frequency Musculoskeletal Musculoskeletal: Denies arthralgias or myalgias Integumentary Reports other Details: Hives ; Denies abscess or rash Neurologic Neurologic: Denies headache(s) or weakness Psychiatric Psychiatric: Denies anxiety, depression, suicidal ideation or suicidal thoughts Endocrine Endocrinology: Denies polydipsia, polyphagia or polyuria Allergic/Immunologic Allergic/Immunologic ED: Denies mouth swelling, tongue swelling or urticaria EXAM Physical Exam Const Vital Signs: 05/19/24 13:59 05/19/24 14:12 05/19/24 15:00 Temperature 98.6 F Temperature Source Oral Pulse Rate 65 62 Respiratory Rate 16 18 Blood Pressure 126/55 H 137/40 H Blood Pressure Mean 78 72 Pulse Ox 93 95 Oxygen Delivery Method Room Air Room Air Room Air 05/19/24 16:00 Temperature Temperature Source Pulse Rate 59 L Respiratory Rate 18 Blood Pressure 109/92 H Blood Pressure Mean 97 Pulse Ox 95 Oxygen Delivery Method Room Air Positive well nourished and well developed General Appearance ED: well developed HEENT Reports normocephalic, head/scalp atraumatic and moist mucous membranes HEENT Narrative: There is swelling of the lower lip as well as the tongue. I do not appreciate uvular swelling. There is no stridor. No hot potato voice. She is feeling her secretions normally. Eyes PERRL and EOMs intact bilaterally Neck no lymphadenopathy, supple and no JVD Resp normal respiratory effort and clear to auscultation bilaterally Cardio regular rate, regular rhythm and no murmurs GI normal to inspection, nondistended, normoactive bowel sounds and non-tender Palpation: soft Back/Spine no CVA tenderness and normal ROM Extremity normal to inspection General Extremety ED: Negative for edema General Extremity: Negative for edema Neuro oriented x3 and CN's II-XII intact bilaterally Sensorium / Orientation: alert Motor Exam: strength 5/5 throughout Psych mental status grossly normal Mood & Affect: Negative for depressed or tearful Skin no wounds Skin Narrative: There are few discrete hives on the upper and lower extremities. MDM MDM MDM Narrative Medical decision making narrative: Differential diagnosis includes anaphylaxis acute allergic reaction hereditary angioedema angioedema contact dermatitis Patient received a dose of epinephrine as well as Solu-Medrol Benadryl and Pepcid. She was observed. At approximately 2 hours and 15 minutes into her ED course the patient is doing much better. The tongue is starting to demonstrate normal contours. The lips are now pink and is significantly less swollen. The hives have resolved as has the itching. We will continue to deserve the patient and I anticipating a discharge. I will be writing her for prednisone and Pepcid with as needed Benadryl at home. The patient understands that if she would star t to have any return of symptoms she needs to call 911 and return to the hospital. Care of the patient will be turned over to the oncoming physician for final disposition. History & Record Review Discussion w/independent historian: Patient Discharge Plan Triage Chief Complaint: Allergic Reaction ED Provider: Shaun Mccabe Dx/Rx/DC Orders Clinical Impression: Anaphylaxis, Angioedema Prescriptions: No Action lidocaine 5 % adhesive patch,medicated 2 patch topical DAILY PRN (Reason: pain) Qty: 30 3RF Rx Instructions: leave on most painful area for up to 12 hrs atorvastatin 20 mg tablet 20 mg PO QHS Qty: 90 1RF donepezil 10 mg tablet 10 mg PO DAILY Qty: 90 1RF hydralazine 25 mg tablet 25 mg PO TID Qty: 90 1RF pregabalin 25 mg capsule 25 mg PO TID 30 Days Qty: 90 1RF pantoprazole 40 mg tablet,delayed release (DR/EC) 40 mg PO DAILY Qty: 90 2RF trazodone 50 mg tablet 50 mg PO QHS Qty: 90 2RF Primary Care Provider: Severo Peter Referrals: Severo Peter MD [Primary Care Provider] - Print Language: Japanese
--- NOTE | 2024-05-19 17:00 | ED.RN ---
Patients daughter given update
== END 2024-05-19 19:14 | disposition home or self-care (01) ==
LOC: ED 14:38
PROVIDERS: Emergency Provider Emergency Medicine; PCP Internal Medicine; Visit Provider Emergency Medicine
DX: T78.2XXA Anaphylactic shock, unspecified, initial encounter (principal); E78.5 Hyperlipidemia, unspecified; R11.0 Nausea; I10 Essential (primary) hypertension; T78.3XXA Angioneurotic edema, initial encounter; X58.XXXA Exposure to other specified factors, initial encounter
CPT/HCPCS: 96372; 96374; 96375; 99285; A4216

== ENCOUNTER → 2024-07-20 | Outpatient (CLI) | payer MEDICARE, SELFPAY ==
[2024-07-20 17:36] LABS: Anion Gap 17 (5-15); BUN 19 mg/dL (4-19); BUN/Creat Ratio 12.1 RATIO (10-20); Calcium,Total 9.5 mg/dL (7.6-11.0); Carbon Dioxide 19.8 mmol/L (21.0-32.0); Chloride 100 mmol/L (98-108); Creatinine, Serum 1.54 mg/dL (0.70-1.20); EST Glomerular Filtration Rate 34 (>60); Glucose 111 mg/dL (70-99); Potassium 4.3 mmol/L (3.3-5.1); Sodium Level 136 mmol/L (133-145)
[2024-07-20 17:47] LABS: Vitamin D,25 Hydroxy 36.1 ng/mL (30-100)
== END | disposition home or self-care (01) ==
PROVIDERS: PCP Internal Medicine; Referring Provider Internal Medicine; Visit Provider Internal Medicine
DX: E55.9 Vitamin D deficiency, unspecified (principal); I10 Essential (primary) hypertension
CPT/HCPCS: 36415; 80048; 82306

== ENCOUNTER → 2024-08-13 | Outpatient (CLI) | payer MEDICARE, SELFPAY ==
--- NOTE | 2024-08-13 15:40 | RAD_ITS ---
PROCEDURE: SHOULDER MIN 2 VIEWS 08/13/2024 REASON FOR EXAM: BILATERAL SHOULDER PAIN TECHNIQUE: Three views of the right shoulder. COMPARISON: None. FINDINGS: Moderate degenerative joint disease of the acromioclavicular and glenohumeral joints. No fracture or dislocation is seen. No lytic or blastic aggressive bone lesion is identified. RAD/Shoulder min 2 Views IMPRESSION: Moderate degenerative joint disease. Reading Location: [facility]
--- NOTE | 2024-08-13 15:40 | RAD_ITS ---
PROCEDURE: SHOULDER MIN 2 VIEWS 08/13/2024 REASON FOR EXAM: BILATERAL SHOULDER PAIN TECHNIQUE: Four views left shoulder COMPARISON: None available FINDINGS: Severe appearing osteoarthrosis of the glenohumeral joint with joint space narrowing, near [id number] contact, buttressing at the mid to inferior joint. Mild acromioclavicular joint osteoarthrosis. No fracture or dislocation. RAD/Shoulder min 2 Views IMPRESSION: Severe appearing osteoarthrosis of the glenohumeral joint and mild of the acrom ioclavicular joint as above. Reading Location: [id number]
== END | disposition home or self-care (01) ==
LOC: MTRAD 15:39
PROVIDERS: PCP Internal Medicine; Referring Provider Internal Medicine; Visit Provider Internal Medicine
DX: M25.511 Pain in right shoulder (principal); M25.512 Pain in left shoulder
CPT/HCPCS: 73030